=== PATIENT | male | born 1955 | race Caucasian/White ===

== ENCOUNTER 2023-03-27 09:00 | Emergency (ER) | payer MEDICARE, SELFPAY ==
--- NOTE | 2023-03-27 09:05 | ED.SKABFB ---
HPI - Skin/Abscess/Foreign Bdy General Chief complaint: Skin/Abscess/Foreign Body Stated complaint: skin irritation Time Seen by Provider: 03/27/23 09:25 Source: patient and RN notes reviewed Mode of arrival: ambulatory Limitations: dementia History of Present Illness HPI narrative: 68-year-old male presents with concern for an abscess on his left arm. He reports he noticed the area was red and painful for about the prior past 3 days, it has continued to get worse get larger. He reports he had chills and fever 2 nights ago. He denies any drainage from the area MD complaint: other (Redness) Related Data Home Medications Medication Instructions Recorded Confirmed amlodipine 10 mg tablet 10 mg DIRECTED 03/27/23 03/27/23 atorvastatin 40 mg tablet 40 mg DIRECTED 03/27/23 03/27/23 bupropion HCl 75 mg tablet 75 mg PO DIRECTED 03/27/23 03/27/23 colchicine 0.6 mg tablet 0.6 mg DIRECTED 03/27/23 03/27/23 hydrochlorothiazide 25 mg tablet 25 mg DIRECTED 03/27/23 03/27/23 lisinopril 40 mg tablet 40 mg DIRECTED 03/27/23 03/27/23 meloxicam 15 mg tablet 15 mg DIRECTED 03/27/23 03/27/23 testosterone 1.62 % (20.25 mg/1.25 1 packet DIRECTED 03/27/23 03/27/23 gram) transdermal gel packet Allergies Allergy/AdvReac Type Severity Reaction Status Date / Time peanut Allergy Severe Anaphylactic Verified 03/27/23 09:20 Shock Penicillins Allergy Unknown Unknown Verified 03/27/23 09:20 Review of Systems Review of Systems: CONSTITUTIONAL: Denies malaise, chills, sweats, or fever. EYES: Denies redness, or discharge. ENT: Denies rhinorrhea, congestion, swollen lips, swollen tongue CARDIOVASCULAR: Denies chest pain, palpitations, or edema. RESPIRATORY: Denies cough or dyspnea. GASTROINTESTINAL: Denies abdominal pain, nausea, vomiting SKIN: Reports redness, swelling, tenderness, warmth under left upper arm. Denies purulent drainage, vesicles, bullae, numbness, pain beyond proportion MUSCULOSKELETAL: Denies joint pain or myalgia. NEUROLOGIC: Denies headache. All systems reviewed & are unremarkable except as noted in HPI and below PMFSH Comments At time of signature, agree with nursing past medical, surgical, social and family history. There is no relevant family history pertinent to the presenting complaint Exam Narrative: GENERAL: Well-appearing, well-nourished, and in no acute distress. HEAD: Normocephalic, atraumatic. EYES: PERRLA, conjunctivae clear ENT: Mucous membranes moist. NECK: Supple. No lymphadenopathy CHEST: Clear to auscultation. No respiratory distress. HEART: Regular rate and rhythm. SKIN: Warm, dry. 9 x 20 area of erythema, with 10x7 cm the induration, tenderness, warmth and fluctuation with sharp margins noted under the left upper arm with small amount of purulent drainage noted. No vesicles, bullae, necrosis, ecchymosis, crepitus noted. NEURO: Alert and oriented x3. PSYCH: Normal mood and affect Course Course Emergency Course: Patient is aware of diagnosis, understands and agrees to treatment plan. Anticipatory guidance given. Patient agrees to follow-up as directed and is aware of reasons to seek care at the emergency department. Portions of this record may have been created with voice recognition software Level of Care: Express Care Visit Vital Signs Vital signs: Reviewed. Procedures Abscess I/D upper extremity: Date of Incision: 03/27/23 Time of Incision: 09:30 Side (if applicable): left Local Anesthetic: lidocaine 1% Amount of anesthesia used (mL): 4 Technique: incised with #11 blade Amount of fluid expressed (mL): 15 Irrigation: Yes Packing used?: none I&D Results: Pus MDM - Skin/Abscess/Foreign Bdy MDM Narrative Medical decision making narrative: Does not appear at this time to be erythema multiforme, bullous, SJS, TEN; no evidence at this time to suggest RMSF, NSTI, endocarditis or Lyme disease; p
[2023-03-27 09:17] VITALS: BP 146/79; PULSE 96; RESP 20; TEMP 36.6; O2SAT 96
[2023-03-27 09:22] VITALS: BP 146/79; PULSE 96; RESP 20; TEMP 36.6; O2SAT 96
== END 2023-03-27 10:03 | disposition home or self-care (01) ==
PROVIDERS: Emergency Provider Nurse Practitioner
DX: L02.414 Cutaneous abscess of left upper limb (principal); E78.00 Pure hypercholesterolemia, unspecified; I10 Essential (primary) hypertension; M19.90 Unspecified osteoarthritis, unspecified site; M10.9 Gout, unspecified; F32.A Depression, unspecified
CPT/HCPCS: 10060; 87070; 87205; 99213; G0463